=== PATIENT | male | born 1960 | race Caucasian/White ===

== ENCOUNTER 2020-10-20 09:46 | Emergency (ER) | payer BC | END 2020-10-20 11:14 | disposition home or self-care (01) | LOC: JVIRT 09:46 | DX: Z20.822 Contact with and (suspected) exposure to COVID-19 (principal) | CPT/HCPCS: C9803; G2251-GT; Q3014-GT; U0003 ==

== ENCOUNTER 2020-10-24 10:38 | Emergency (ER) | payer BC | END 2020-10-24 11:39 | disposition home or self-care (01) | LOC: JVIRT 10:38 | DX: Z20.822 Contact with and (suspected) exposure to COVID-19 (principal) | CPT/HCPCS: C9803; G2251-GT; Q3014-GT; U0003 ==